=== PATIENT | male | born 1990 | race Asian ===

== ENCOUNTER 2019-12-29 23:31 | Emergency (ER) | payer OTHER ==
[~2019-12-29] VITALS: Ht 165.1 cm; Wt 113.4 kg
[2019-12-30 00:14] LABS: POTASSIUM 4.1 mmol/L (3.6-5.2); SODIUM 139 mmol/L (136-145)
[2019-12-30 01:11] LABS: PLATELET COUNT 100 K/uL (142-355)
[2019-12-30 01:23] VITALS: BP 128/88; TEMP 98.2
== END 2019-12-30 01:23 | disposition home or self-care (01) ==
LOC: ED 23:31
PROVIDERS: Emergency Medicine Emergency Medical Services
DX: S16.1XXA Strain of muscle, fascia and tendon at neck level, initial encounter (principal); R55 Syncope and collapse; R20.2 Paresthesia of skin; S00.81XA Abrasion of other part of head, initial encounter; I10 Essential (primary) hypertension; W17.89XA Other fall from one level to another, initial encounter; Y92.89 Other specified places as the place of occurrence of the external cause
CPT/HCPCS: 80053; 80320; 85007; 85027; 96360; 96375; 99284; J1885